=== PATIENT | female | born 1990 | race Caucasian/White ===

== ENCOUNTER 2017-01-06 06:53 | Inpatient (IN) | payer BC ==
[2017-01-06] MEDS ORDERED: Oxytocin in LR* 20 UNITS/1,000 ML BAG IVPB SCH (09:00)
[2017-01-06 10:21] LABS: Hematocrit 36 % (35-47); Hemoglobin 11.7 g/dl (12.0-16.0); Mean Corpuscular HGB Conc 32 g/dl (31-36); Mean Corpuscular Hemoglobin 28 pg (27-31); Mean Corpuscular Volume 86 fL (80-97); Mean Platelet Volume 10 um3 (7.4-10.4); Red Blood Count 4.23 10^6/ul (4.0-5.4); Red Cell Distribution Width 15 % (10.5-15); White Blood Count 11.7 10^3/ul (3.5-10.8)
[2017-01-07] MEDS ORDERED: Witch Hazel PAD* JAR TOPICAL PRN (00:03)
[2017-01-07] MEDS ORDERED: Glycerin ADULT SUPP PR PRN (00:03)
[2017-01-07] MEDS ORDERED: Acetaminophen TAB* 325 MG PO PRN (00:03)
[2017-01-07] MEDS ORDERED: Dibucaine 1% 28.35 GM TUBE PR PRN (00:03)
[2017-01-07] MEDS ORDERED: Lidocaine 1% MPF* 2 ML VIAL ONE (04:05)
[2017-01-07] MEDS ORDERED: Simethicone CHEW TAB* 80 MG PO SCH (08:30)
[2017-01-07] MEDS: Docusate CAP* 100 MG PO SCH ×3 (09:00→21:22)
[2017-01-07] MEDS: Ibuprofen TAB* 600 MG PO PRN ×3 (11:00→23:46)
[2017-01-08 08:06] VITALS: BP 126/83
[2017-01-08 08:39] LABS: Hematocrit 31 % (35-47); Hemoglobin 10.4 g/dl (12.0-16.0); Mean Corpuscular HGB Conc 33 g/dl (31-36); Mean Corpuscular Hemoglobin 29 pg (27-31); Mean Corpuscular Volume 86 fL (80-97); Mean Platelet Volume 10 um3 (7.4-10.4); Red Blood Count 3.62 10^6/ul (4.0-5.4); Red Cell Distribution Width 15 % (10.5-15); White Blood Count 10.9 10^3/ul (3.5-10.8)
[2017-01-08] MEDS ORDERED: Ferrous Gluconate TAB* 324 MG TAB PO SCH (09:00)
[2017-01-08] MEDS: Docusate CAP* 100 MG PO SCH (09:22)
== END 2017-01-08 10:23 | disposition home or self-care (01) | DRG 560 ==
LOC: MCHOBOUT 06:53 → MCHOB 08:32
PROVIDERS: ADMIT Midwife; ATTEND Midwife
PROC: 10E0XZZ Delivery of Products of Conception, External Approach (ICD-10-PCS; principal; 2017-01-06)
PROC: 10907ZC Drainage of Amniotic Fluid, Therapeutic from Products of Conception, Via Natural or Artificial Opening (ICD-10-PCS; 2017-01-06)
PROC: 3E033VJ Introduction of Other Hormone into Peripheral Vein, Percutaneous Approach (ICD-10-PCS; 2017-01-06)
DX: O99.214 Obesity complicating childbirth (principal); Z68.41 Body mass index [BMI] 40.0-44.9, adult; E66.01 Morbid (severe) obesity due to excess calories; D64.9 Anemia, unspecified; O90.81 Anemia of the puerperium; Z3A.39 39 weeks gestation of pregnancy; Z37.0 Single live birth
CPT/HCPCS: 36415; 85025; 86850; 86900; 86901; A9270-GY

== ENCOUNTER 2017-09-06 20:54 | Emergency (ER) | payer BC ==
[2017-09-06 22:15] LABS: ABS Basophils 0.1 10^3/ul (0-0.2); ABS Eosinophils 0.2 10^3/ul (0-0.6); ABS Lymphocytes 2.8 10^3/ul (1.0-4.8); ABS Monocytes 0.7 10^3/ul (0-0.8); ABS Neutrophils 4.3 10^3/ul (1.5-7.7); ABS Nucleated RBC 0 10^3/ul; Hematocrit 38 % (35-47); Hemoglobin 12.6 g/dl (12.0-16.0); Lymphocyte % 34.6 % (25-47); Mean Corpuscular HGB Conc 34 g/dl (31-36); Mean Corpuscular Hemoglobin 28 pg (27-31); Mean Corpuscular Volume 84 fL (80-97); Mean Platelet Volume 10 um3 (7.4-10.4); Nucleated Red Blood Cells % 0.2; Platelet Count 210 10^3/ul (150-450); Red Blood Count 4.47 10^6/ul (4.0-5.4); Red Cell Distribution Width 15 % (10.5-15)
[2017-09-06 22:26] LABS: Urine Appearance Cloudy; Urine Blood 3+ (Negative); Urine Color Yellow; Urine Ketones Negative (Negative); Urine Protein Negative (Negative); Urine Specific Gravity 1.025 (1.010-1.030); Urine Urobilinogen Negative (Negative)
[2017-09-06 22:26] LABS: EGFR Non-African American 104.6 (>60)
--- NOTE | 2017-09-07 01:29 | ED ---
Audrey Segura Edward, scribed for Coco Song MD on 09/06/17 at 2129 . - HPI Summary HPI Summary: 27 y/o female presents to the ED c/o vaginal bleeding starting earlier today, still present. Bleeding described as a small clot today. Pt also took a test that was positive, per pt. Associated sx: diffuse R side body pain staring yesterday especially in the R upper back and shoulder, cramping starting yesterday described like she was "passing a fallopian tube". LNMP 2 weeks ago. G/P/A - 09/12/0. Pt has an IUD, placed in January of 2018. - History of Current Complaint Chief Complaint: EDOBProblems Stated Complaint: +PREG TEST W/ IUD Time Seen by Provider: 09/06/17 21:27 Hx Obtained From: Patient Chief Complaint: Vaginal Bleeding Onset/Duration: Started Hours Ago Timing: Constant Pain Intensity: 6 Location of Pain: Right Side - diffuse body, especially in R upper back and shoulder Character: Cramping Aggravating Factors: Nothing Alleviating Factors: Nothing Associated Signs and Symptoms: Positive: Back Pain, Vaginal Bleeding or Discharge - Assessment SAB: 0 IEA: 0 - Additional Pertinent History Maternal Blood Type and Rh: B Positive - Allergies/Home Medications Allergies/Adverse Reactions: Allergies Allergy/AdvReac Type Severity Reaction Status Date / Time Penicillins Allergy Anaphylatic Verified 09/06/17 21:26 Shock PMH/Surg Hx/FS Hx/Imm Hx Previously Healthy: No Endocrine/Hematology History: Denies: Hx Anticoagulant Therapy, Hx Diabetes, Hx Thyroid Disease Cardiovascular History: Denies: Hx Hypertension, Hx Pacemaker/ICD Respiratory History: Denies: Hx Asthma, Hx Chronic Obstructive Pulmonary Disease (COPD) History: Denies: Hx Renal Disease Neurological History: Denies: Hx Dementia, Hx Seizures Psychiatric History: Denies: Hx Substance Abuse Infectious Disease History: No Infectious Disease History: Denies: Hx Hepatitis, Hx Human Immunodeficiency Virus (HIV), Traveled Outside the [place] in Last 30 Days - Family History Known Family History: Positive: Unknown - Social History Alcohol Use: None Hx Substance Use: No Substance Use Type: Reports: None Hx Tobacco Use: Yes Smoking Status (MU): Former Smoker Have You Smoked in the Last Year: No Review of Systems Constitutional: Negative Eyes: Negative ENT: Negative Cardiovascular: Negative Respiratory: Negative Gastrointestinal: Negative Positive: pain - cramping Positive: Other - diffuse R side pain - most in R upper back and shoulder Skin: Negative Neurological: Negative Psychological: Normal All Other Systems Reviewed And Are Negative: Yes Physical Exam - Summary Physical Exam Summary: VITAL SIGNS: Reviewed. GENERAL: Patient is a well-developed and nourished female who is lying comfortable in the stretcher. Patient is not in any acute respiratory distress. HEAD AND FACE: No signs of trauma. No ecchymosis, hematomas or skull depressions. No sinus tenderness. EYES: PERRLA, EOMI x 2, No injected conjunctiva, no nystagmus. EARS: Hearing grossly intact. Ear canals and tympanic membranes are within normal limits. MOUTH: Oropharynx within normal limits. NECK: Supple, trachea is midline, no adenopathy, no JVD, no carotid bruit, no c- spine tenderness, neck with full ROM. CHEST: Symmetric, no tenderness at palpation LUNGS: Clear to auscultation bilaterally. No wheezing or crackles. CVS: Regular rate and rhythm, S1 and S2 present, no murmurs or gallops appreciated. ABDOMEN: Soft, RLQ tenderness. No signs of distention. No rebound no guarding, and no masses palpated. Bowel sounds are normal. EXTREMITIES: FROM in all major joints, no edema, no cyanosis or clubbing. NEURO: Alert and oriented x 3. No acute neurological deficits. Speech is normal and follows commands. SKIN: Dry and warm - Physical Exam Triage Information Reviewed: Yes Vital Signs Reviewed: Yes - Vaginal Assessment Presentation Comment: u/s confirmed presentation Diagnostics - Vital Signs Vital Signs Temp Pulse Resp BP Pulse Ox 09/06/17 20:57 98.9 F 96 16 144/100 100 - Laboratory Result Diagrams: 09/06/17 22:00 09/06/17 22:00 Lab Statement: Any lab studies that have been ordered have been reviewed, and results considered in the medical decision making process. - Ultrasound No standard instances Ultrasound Interpretation: Positive (See Comments) - US OBSTETRIC - OB Ultrasound < 14 weeks single fetus and Duplex scan pelvic, incomplete. Possible 1.1 cm sac-like structure in right adnexa superior to right ovary, suspicious for ectopic corresponding to gestational age 5 weeks 6 days. No visible pole, heartbeat, or yolk sac. Alternatively, findings could represent a paraovarian cyst in the setting of occult ectopic located elsewhere, early nonvisualized intrauterine , or spontaneous . Advise correlation with quantitative serial beta-hCG. Complex fluid throughout pelvis, suspicious for hemoperitoneum. No visible free fluid in Morison's pouch. Fluid around fundal portion of IUD. No definite intrauterine . No ovarian torsion. Color flow bilaterally. Ultrasound Interpretation Completed By: Radiologist Course/Dx - Course Assessment/Plan: Spoke with Dr. Watts who will come see the pt in the ED. Pt evaluated by Dr. Duarte, who recommended the pt be d/c home with f/u with her OB doctor. - Diagnoses Provider Diagnoses: Ectopic - Provider Notifications Discussed Care Of Patient With: Carmella Duarte Time Discussed With Above Provider: 00:24 Instructed by Provider To: MD Will See In ED Discharge - Discharge Plan Condition: Stable Disposition: HOME Patient Education Materials: Ectopic (ED) Referrals: Aly Paez MD [Primary Care Provider] - 4 Days (PLEASE F/U IN 3-5 DAYS) Additional Instructions: PLEASE RETURN TO THE ED FOR THE RETURN OF OR WORSENING OF SYMPTOMS The documentation as recorded by the Audrey pascal Edward accurately reflects the service I personally performed and the decisions made by , Coco Song MD.
[2017-09-07 01:34] VITALS: BP 146/87
--- NOTE | 2017-09-07 01:52 | CONSULT ---
Consult Consult: HPI: PT had sudden onset of abdominal cramping on 09/05. It improved some over the day and on 09/06 she describes more right side pain even up into her right shoulder. She says at the worst the pain was about 8/10 but most of the time was more like a 4/10 and currently she denies any pain. She has not taken anything for pain. Yesterday she had some vaginal spotting and took a test which was positive which prompted her to go to the ED. She denies and n/v and has been eating normally. No dizzyness/lightheadedness. She has an IUD in place since January 2018, she checks the strings regularly. She has been having regular periods since insertion with her LMP on Aug 21 - that was a very normal week-long period. PMH: negative PSH: negative [employer] Hx: with 4 NVD (1 child now adopted). No complications other than an early subchorionic hemorrhage in one . Soc Hx: Denies current alcohol, tobacco or illicit drug use AVSS, completely normal BPs Gen: NAD, sleeping in the stretcher on my arrival, moves without any e/o pain Abd: mild right side and lower abdominal tenderness, no rebound or guarding. Labs: H/H 12.6/38, [facility] Sono: IUD in appropriate position in the uterus, no IUP seen. 1.1cm sac-like structure in the right adnexa superior to the ovary - ?ectopic vs paraovarian cyst. No pole seen. Complex fluid in the pelvis suspicious for hemoperitoneum, none in Morison's pouch. Assessment: with possible ectopic (?rupture) vs ruptured hemorrhagic cyst and early of unknown location. Pt would want to continue the should it be shown to be viable. She says she is planning on having the IUD removed and her is getting a vasectomy but declines removal today in the ED. She is completely stable with very minimal pain at this time, having received no pain meds. Plan: We discussed the possible diagnoses extensively. Pt is aware that I cannot rule out an ectopic or a ruptured ectopic at this time but I also cannot rule out an early viable IUP with a ruptured hemorrhagic cyst. Because she would desire to keep this if viable I would not recommend methotrexate treatment at this time. Due to the stability of her H/H , vital signs and her minimal pain I do not believe surgery is warranted at this time either. Pt was counseled extensively on signs/symptoms of hemodynamic instability and the need to return to the ED immediately should this happen. She understands the importance of following up at [facility] for repeat bloodwork and f/u visit on Thu. She does not plan to work today but does plan to return to work tomorrow and does not request an out-of-work note. All questions answered.
--- NOTE | 2017-09-07 07:48 | RAD ---
HISTORY: Vaginal bleeding with a positive test and IUD in place COMPARISONS: None TECHNIQUE: Multiple transverse and longitudinal ultrasound images were obtained of the pelvis using grayscale, color flow, spectral and M-mode sonographic imaging. FINDINGS: UTERUS: The uterus is normal in shape, size, contour, and echotexture. GESTATION: The uterus measures 9.2 x 4.3 x 6.7 cm. The intrauterine device appears to be appropriately positioned at the fundal height endometrium. There is endometrial fluid adjacent to the fundal height IUD. No gestational sac or products of conception are visualized in the endometrium. CUL-DE-SAC: There is a moderate amount of echogenic fluid in the cul-de-sac. RIGHT OVARY: The right ovary measures 3.6 x 2.1 x 2.6 cm. Adjacent to the right ovary there is an anechoic and avascular focus within mean diameter of 1.1 cm. LEFT OVARY: The left ovary measures 2.9 x 3.3 x 2.5 cm. IMPRESSION: 1. No intrauterine gestational sac or products of conception. 2. Echogenic fluid in the cul-de-sac is consistent with blood. 3. Anechoic and avascular 1.1 cm structure adjacent to the right ovary. This constellation of findings in the presence of a positive test include a too early to visualize, spontaneous or, of greatest clinical concern, an ectopic possibly adjacent to the right ovary. Close clinical follow-up including serial beta hCG is advised.
== END 2017-09-07 01:33 | disposition home or self-care (01) ==
LOC: ED 20:54
DX: O00.90 Unspecified ectopic pregnancy without intrauterine pregnancy (principal); Z3A.14 14 weeks gestation of pregnancy; M54.9 Dorsalgia, unspecified; N93.9 Abnormal uterine and vaginal bleeding, unspecified; Z87.891 Personal history of nicotine dependence
CPT/HCPCS: 36415; 76817; 80053; 81003; 81015; 84702; 85025; 86850; 86900; 86901; 87086; 99282

== ENCOUNTER → 2017-09-17 17:45 | Emergency (ER) | payer BC ==
[2017-09-17 17:51] VITALS: BP 151/83
== END | disposition left against medical advice (07) ==
LOC: ED 17:45
DX: R10.9 Unspecified abdominal pain (principal); Z53.21 Procedure and treatment not carried out due to patient leaving prior to being seen by health care provider